=== PATIENT | female | born 1975 | race African-American/Black ===

== ENCOUNTER 2017-07-18 19:33 | Emergency (ER) | payer SELFPAY ==
[2017-07-18] MEDS ORDERED: HYDROcodone/Acetaminophen 5/325 mg Tablet ONE (20:02)
[2017-07-18] MEDS ORDERED: Ondansetron ODT 4 MG TAB ONE (20:03)
[2017-07-18] MEDS ORDERED: AMOXicillin 250 MG CAP ONE (20:27)
[2017-07-18] MEDS ORDERED: diphenhydrAMINE 25 MG CAP ONE (20:27)
[2017-07-18] MEDS ORDERED: Metoclopramide HCl 10 MG TAB ONE (20:27)
== END 2017-07-18 20:32 | disposition home or self-care (01) ==
LOC: MADERS 19:33
DX: J01.90 Acute sinusitis, unspecified (principal); F17.210 Nicotine dependence, cigarettes, uncomplicated
CPT/HCPCS: 99283; Q0162

== ENCOUNTER 2022-02-03 08:06 | Emergency (ER) | payer MEDICAID, SELFPAY ==
[2022-02-03] MEDS ORDERED: Dexamethasone 4 MG TAB ONE (09:07)
== END 2022-02-03 09:55 | disposition home or self-care (01) ==
LOC: MADERS 08:06
DX: J02.9 Acute pharyngitis, unspecified (principal); E11.9 Type 2 diabetes mellitus without complications; C50.919 Malignant neoplasm of unspecified site of unspecified female breast; Z79.84 Long term (current) use of oral hypoglycemic drugs; Z79.899 Other long term (current) drug therapy
CPT/HCPCS: 87081; 87430; 99283; J8540

== ENCOUNTER 2022-02-04 19:11 | Emergency (ER) | payer MEDICAID ==
[2022-02-04] MEDS ORDERED: predniSONE 20 MG TAB ONE (21:06)
== END 2022-02-04 21:19 | disposition home or self-care (01) ==
LOC: MADERS 19:11
DX: J06.9 Acute upper respiratory infection, unspecified (principal); J02.9 Acute pharyngitis, unspecified; E11.9 Type 2 diabetes mellitus without complications; C50.919 Malignant neoplasm of unspecified site of unspecified female breast; Z79.84 Long term (current) use of oral hypoglycemic drugs; Z79.899 Other long term (current) drug therapy
CPT/HCPCS: 36416; 99283; J7512

== ENCOUNTER 2022-04-22 11:43 | Emergency (ER) | payer MEDICAID, OTHER ==
[2022-04-22] MEDS ORDERED: Fluconazole 100 MG TAB ONE (13:26)
== END 2022-04-22 13:50 | disposition home or self-care (01) ==
LOC: MADERS 11:43
DX: B35.6 Tinea cruris (principal); E11.9 Type 2 diabetes mellitus without complications; Z79.84 Long term (current) use of oral hypoglycemic drugs
CPT/HCPCS: 87480; 87510; 87660; 99283

== ENCOUNTER 2022-06-24 16:23 | Emergency (ER) | payer OTHER ==
[~2022-06-24 16:23] MED LIST: Iopamidol 370 76% 125 ML VIAL FS ONE
[2022-06-24 17:18] LABS: #Lymphocytes 1.1 thou/uL (1.20-3.40); #Monocytes 0.4 thou/uL (0.11-0.59); #Neutrophils 2.9 thou/uL (1.40-6.50); %Basophils 0.9 % (0.0-1.0); %Eosinophils 0.7 % (0.0-10.0); %Lymphocytes 24.9 % (21.0-51.0); %Monocytes 8.4 % (0.0-10.0); Hemoglobin 13.2 g/dL (12.0-16.0); Mean Corpuscular HGB CONC 31.5 g/dL (32.0-36.0); Mean Corpuscular Hemoglobin 25.2 pg (27.0-31.0); Mean Corpuscular Volume 80.2 fl (78.0-98.0); Mean Platelet Volume 8.7 fL (7.4-10.4); Platelet Count 268 10x3/uL (130-400); RBC Distribution Width 14.5 % (11.5-14.5); Red Blood Cell (RBC) Count 5.22 mill/uL (4.20-5.40); White Blood Cell (WBC) Count 4.4 10x3/uL (4.8-10.8)
[2022-06-24 17:34] LABS: ALT (SGPT) 13 U/L (8-55); AST (SGOT) 14 U/L (5-34); Albumin 4.2 g/dL (3.5-5.0); Alkaline Phosphatase 128 U/L (40-110); Anion Gap 14 mmol/L (10-20); BUN (Urea Nitrogen) 7 mg/dL (7.0-18.7); Bilirubin, Total 0.5 mg/dL (0.2-1.2); Calc. Creatinine Clearance 0 mL/min (70-130); Calcium 9.6 mg/dL (7.8-10.44); Carbon Dioxide 27 mmol/L (22-29); Chloride 98 mmol/L (98-107); Estimated GFR 83; Globulin 3.2 g/dL (2.4-3.5); Magnesium 1.6 mg/dL (1.6-2.6); Potassium 3.2 mmol/L (3.5-5.1); Protein, Total 7.4 g/dL (6.0-8.3); Sodium 136 mmol/L (136-145)
[2022-06-24 17:44] LABS: Glucose 470 mg/dL (70-105)
[2022-06-24 18:17] LABS: Base Excess-Venous 4.1 mmol/L (-2.0 to 3.0); Bicarbonate (HCO3v) 29.7 mmol/L (22.0-28.0); CO2 Tension (PvCO2) 46.5 mmHg (42.0-51.0); Calcium, Ionized 1.14 mmol/L (1.15-1.33); Chloride 100 mmol/L (98-107); Hemoglobin - Calc 15.9 g/dL (12.0-16.0); Potassium 3.2 mmol/L (3.5-5.1); Sodium 139 mmol/L (138-145); T. Carbon Dioxide 31.1 mmol/L (22.0-28.0); vO2 Saturation-calc 84.1 % (60.0-85.0)
[2022-06-24] MEDS ORDERED: Potassium Chloride 20 MEQ TAB ONE (18:18)
[2022-06-24] MEDS ORDERED: Ipratropium/Albuterol 3 ML NEB ONE (18:18)
[2022-06-24] MEDS ORDERED: Sodium Chloride 0.9% 1,000 ML ONE (18:18)
[2022-06-24 19:05] LABS: Bilirubin Negative (Negative); Blood, Urine Trace (Negative); Clarity Clear (Clear); Glucose, Urine (Dipstick) >=1000 mg/dL (Negative); Ketone, Urine Trace mg/dL (Negative); Leukocyte Negative (Negative); Nitrite Negative (Negative); Protein, Urine (Dipstick) Negative (Neg-Trace)
[2022-06-24 19:12] LABS: Bacteria/HPF Rare-Few HPF (None Seen); RBC/HPF 0-3 HPF (0-3); Squamous Epithelial 0-3 HPF (0-3); Yeast-Budding Rare HPF (None Seen)
[2022-06-24] MEDS ORDERED: cefTRIAXone\\ROCEPHIN 1 GM VIAL ONE (19:29)
[2022-06-24] MEDS ORDERED: Sodium Chloride 0.9% 250 ML 0 ML ONE (19:30)
[2022-06-24] MEDS ORDERED: Sodium Chloride 0.9% 100 ML ONE (19:38)
[2022-06-24 21:01] LABS: SARS-CoV-2 NAA Rapid Test Not Detected (NotDetected)
[2022-06-24] MEDS ORDERED: Vancomycin 1 GM VIAL ONE (21:44)
[2022-06-24] MEDS ORDERED: Sodium Chloride 0.9% 250 ML 250 ML ONE (21:45)
[2022-06-24] MEDS ORDERED: HYDROcodone/Acetaminophen 10/325 mg Tablet ONE (23:15)
[2022-06-24] MEDS ORDERED: Insulin Regular 300 UNITS/3 ML VIAL ONE (23:42)
== END 2022-06-24 23:44 | disposition short-term general hospital (02) ==
LOC: MADERS 16:23
DX: J18.9 Pneumonia, unspecified organism (principal); E87.6 Hypokalemia; E11.65 Type 2 diabetes mellitus with hyperglycemia; Z20.822 Contact with and (suspected) exposure to COVID-19; Z79.84 Long term (current) use of oral hypoglycemic drugs
CPT/HCPCS: 36415; 71045; 71275; 80053; 81003; 81015; 82330; 82803; 83605; 83735; 83880; 84484; 85025; 87040; 87804; 93005; 96365; 96367; J0696; J1815; J3370; J3490; J7050; J7620; Q9967; U0002